=== PATIENT | male | born 1990 | race Caucasian/White ===

== ENCOUNTER 2018-05-31 03:28 | Emergency (ER) | payer SELFPAY ==
--- NOTE | 2018-05-31 04:28 | PDOC ---
History of Present Illness - General Chief Complaint: Cold Symptoms Stated Complaint: CONGESTION,COUGH Time Seen by Provider: 05/31/18 04:28 History Source: Patient - History of Present Illness Initial Comments: 05/31/18 04:57 27-year-old male sent by labor and delivery, patient has a and has been have a nasal congestion and cough. Maternity floor sent for evaluation for flu or RSV symptoms. Patient denies fevers/chills, nausea, vomiting, abdominal pain. Review of Systems - Review of Systems Able to Perform ROS?: Yes Is the patient limited Kazakh proficient: No Constitutional: No: Symptoms Reported, See HPI, Chills, Diaphoresis, Fever, Loss of Appetite, Malaise, Night Sweats, Weakness, Weight Stable, Unintentional Wgt. Loss, Unexplained wgt Loss, Other HEENTM: Yes: Nose Congestion Respiratory: Yes: Cough Cardiac (ROS): No: Symptoms Reported, See HPI, Chest Pain, Edema, Irregular Heart Rate, Lightheadedness, Palpitations, Syncope, Chest Tightness, Other ABD/GI: No: Symptoms Reported, See HPI, Abdominal Distended, Abd. Pain w/ defecation, Blood Streaked Bowels, Constipated, Diarrhea, Difficulty Swallowing , Nausea, Poor Appetite, Poor Fluid Intake, Rectal Bleeding, Vomiting, Indigestion, Abdominal cramping, Tarry Stools, Other *Physical Exam - Vital Signs 05/31/18 05:07 Last Vital Signs Temp Pulse Resp BP Pulse Ox 97.9 F 89 16 145/82 98 05/31/18 04:20 05/31/18 04:20 05/31/18 04:20 05/31/18 04:20 05/31/18 04:20 - Physical Exam General Appearance: Yes: Appropriately Dressed HEENT: positive: Normal ENT Inspection, Nasal Congestion Neck: negative: Lymphadenopathy (R), Lymphadenopathy (L) Respiratory/Chest: positive: Lungs Clear, Normal Breath Sounds Cardiovascular: positive: Regular Rhythm, Regular Rate Gastrointestinal/Abdominal: positive: Normal Bowel Sounds, Soft. negative: Tender Extremity: positive: Normal Capillary Refill, Normal Inspection Integumentary: positive: Normal Color, Dry, Warm Neurologic: positive: Fully Oriented, Alert, Normal Mood/Affect Progress Note - Progress Note Progress Note: A: common cold P: rsv influenza negative *DC/Admit/Observation/Transfer Diagnosis at time of Disposition: Nasal congestion - Discharge Dispostion Disposition: HOME - Referrals - Patient Instructions Printed Discharge Instructions: DI for Common Cold Additional Instructions: wash hands thoroughly cover your cough follow up with your doctor - Post Discharge Activity Forms/Work/School Notes: Back to Work
[2018-05-31 04:30] VITALS: BP 145/82; PULSE 89; TEMP 97.9; BMI 60.5
--- NOTE | 2018-05-31 04:30 | PDOC ---
Medical Decision Making - Medical Decision Making 05/31/18 04:29 Patient seen by the advanced practice provider under my direct supervision. Ancillary testing reviewed as necessary. I agree with plan as outlined by the advanced practice provider. *DC/Admit/Observation/Transfer Diagnosis at time of Disposition: Nasal congestion - Discharge Dispostion Disposition: HOME Condition at time of disposition: Stable - Referrals - Patient Instructions Printed Discharge Instructions: DI for Common Cold Additional Instructions: wash hands thoroughly cover your cough follow up with your doctor - Post Discharge Activity Forms/Work/School Notes: Back to Work
== END 2018-05-31 05:43 | disposition home or self-care (01) ==
LOC: JER 03:28
DX: J00 Acute nasopharyngitis [common cold] (principal)
CPT/HCPCS: 87804; 87807; 99282-25